=== PATIENT | male | born 1980 | race Caucasian/White ===

== ENCOUNTER 2019-09-01 08:53 | Outpatient (CLI) | payer BC, SELFPAY ==
[2019-09-01 10:44] LABS: Calculated LDL 109 mg/dL (<100); Cholesterol 165 mg/dL (<200); HDL Cholesterol 27 mg/dL (40-60); Triglyceride 146 mg/dL (<150)
[2019-09-01 10:46] LABS: Hemoglobin A1C 5.7 % (3.8-5.6)
== END 2019-09-01 09:13 ==
PROVIDERS: PCP Emergency Medicine; Visit Provider Nurse Practitioner
DX: Z13.6 Encounter for screening for cardiovascular disorders (principal); Z13.1 Encounter for screening for diabetes mellitus
CPT/HCPCS: 36415; 80061; 83036

== ENCOUNTER 2020-09-13 02:50 | Outpatient (CLI) | payer BC, SELFPAY ==
[2020-09-13 07:44] LABS: Hemoglobin A1C 5.8 % (<5.7)
[2020-09-13 08:49] LABS: CREATININE 1.1 mg/dL (0.70-1.30); Potassium 4.1 mmol/L (3.5-5.1)
== END 2020-09-13 02:51 | disposition home or self-care (01) ==
LOC: LBO 02:50
PROVIDERS: PCP Nurse Practitioner; Visit Provider Nurse Practitioner
DX: I10 Essential (primary) hypertension (principal); R73.03 Prediabetes; Z00.00 Encounter for general adult medical examination without abnormal findings
CPT/HCPCS: 36415; 82565; 83036; 84132

== ENCOUNTER 2021-09-13 02:34 | Outpatient (CLI) | payer BC, SELFPAY ==
[2021-09-13 17:00] LABS: Hemoglobin A1C 5.5 % (<5.7)
[2021-09-13 18:18] LABS: Anion Gap 7.8 mmol/L (3-11); BUN 16 mg/dL (7-18); CO2 28.2 mmol/L (21.0-32.0); CREATININE 1.1 mg/dL (0.70-1.30); Calcium 8.8 mg/dL (8.5-10.1); Calculated LDL 103 mg/dL (<100); Chloride 102 mmol/L (98-107); Cholesterol 157 mg/dL (<200); Glucose 91 mg/dL (74-106); HDL Cholesterol 32 mg/dL (40-60); Potassium 4.2 mmol/L (3.5-5.1); Sodium 138 mmol/L (136-145); Triglyceride 111 mg/dL (<150)
== END 2021-09-13 02:35 | disposition home or self-care (01) ==
LOC: LBO 02:34
PROVIDERS: PCP Nurse Practitioner; Visit Provider Nurse Practitioner
DX: I10 Essential (primary) hypertension (principal); Z13.6 Encounter for screening for cardiovascular disorders; R73.03 Prediabetes; Z00.00 Encounter for general adult medical examination without abnormal findings
CPT/HCPCS: 36415; 80048; 80061; 83036

== ENCOUNTER 2022-09-19 03:15 | Outpatient (CLI) | payer BC, SELFPAY ==
[2022-09-19 17:11] LABS: Anion Gap 5.6 mmol/L (3-11); BUN 17 mg/dL (7-18); CO2 30.4 mmol/L (21.0-32.0); Calcium 8.9 mg/dL (8.5-10.1); Calculated LDL 105 mg/dL (<100); Chloride 105 mmol/L (98-107); Cholesterol 166 mg/dL (<200); Estimated GFR 95.77 (mL/min/1.73m2); Glucose 100 mg/dL (74-106); HDL Cholesterol 48 mg/dL (40-60); Potassium 4.1 mmol/L (3.5-5.1); Sodium 141 mmol/L (136-145); Triglyceride 66 mg/dL (<150)
== END 2022-09-19 03:16 | disposition home or self-care (01) ==
LOC: LBO 03:16
PROVIDERS: PCP Nurse Practitioner Family; Visit Provider Nurse Practitioner Family
DX: Z00.00 Encounter for general adult medical examination without abnormal findings (principal); I10 Essential (primary) hypertension; Z13.1 Encounter for screening for diabetes mellitus; Z13.220 Encounter for screening for lipoid disorders
CPT/HCPCS: 36415; 80048; 80061

== ENCOUNTER 2024-01-20 11:08 | Outpatient (CLI) | payer BC, SELFPAY | END 2024-01-20 11:09 | disposition home or self-care (01) | LOC: DI.CM 11:09 | PROVIDERS: PCP Nurse Practitioner Family; Visit Provider Nurse Practitioner Family | CPT/HCPCS: 93010 ==

== ENCOUNTER 2024-01-21 21:51 | Outpatient (REF) | payer BC, SELFPAY ==
[2024-01-21 22:57] LABS: Anion Gap 12.4 mmol/L (3-11); BUN 16 mg/dL (7-18); CO2 25.6 mmol/L (21.0-32.0); CREATININE 1.1 mg/dL (0.70-1.30); Chloride 105 mmol/L (98-107); Estimated GFR 84.89 (mL/min/1.73m2); Glucose 116 mg/dL (74-106); Potassium 3.9 mmol/L (3.5-5.1); Sodium 143 mmol/L (136-145)
[2024-01-22 19:14] LABS: Hepatitis C Ab w Rflx HCV PCR Negative (Negative)
[2024-01-22 19:20] LABS: HIV-1/2 Ag & Ab Screen Negative (Negative)
== END 2024-01-21 21:52 | disposition home or self-care (01) ==
LOC: LBN 21:51
PROVIDERS: PCP Nurse Practitioner Family; Referring Provider Nurse Practitioner Family; Visit Provider Nurse Practitioner Family
DX: Z11.4 Encounter for screening for human immunodeficiency virus [HIV]; Z00.00 Encounter for general adult medical examination without abnormal findings
CPT/HCPCS: 80048; 86803; 87389

== ENCOUNTER 2025-05-05 03:22 | Outpatient (CLI) | payer BC, SELFPAY ==
[2025-05-05 13:15] LABS: ALT 45 U/L (16-63); AST 18 U/L (15-37); Albumin 3.9 g/dL (3.4-5.0); Alkaline Phosphatase 69 U/L (46-116); Anion Gap 8.2 mmol/L (3-11); BUN 13 mg/dL (7-18); Bilirubin, Total 0.5 mg/dL (0.2-1.0); CO2 28.8 mmol/L (21.0-32.0); Calcium 8.5 mg/dL (8.5-10.1); Chloride 104 mmol/L (98-107); Cholesterol 187 mg/dL (<200); Glucose 102 mg/dL (74-106); HDL Cholesterol 35 mg/dL (>or=40); Potassium 4.5 mmol/L (3.5-5.1); Sodium 141 mmol/L (136-145); TSH (W/Ref FT4) 1.04 uIU/mL (0.36-3.74); Total Protein 7.3 g/dL (6.4-8.2)
[2025-05-06 00:33] LABS: HBs Antibody, Quant <3.1 mIU/mL (See Note); Hepatitis B Surface Antigen Negative (Negative)
== END 2025-05-05 03:23 | disposition home or self-care (01) ==
LOC: LOS 03:22
PROVIDERS: PCP Nurse Practitioner Family; Visit Provider Nurse Practitioner Family
DX: Z13.29 Encounter for screening for other suspected endocrine disorder (principal); Z11.59 Encounter for screening for other viral diseases; Z13.220 Encounter for screening for lipoid disorders
CPT/HCPCS: 36415; 80053; 80061; 86704; 86706; 87340; 84443